=== PATIENT | male | born 1965 | race Caucasian/White ===

== ENCOUNTER 2017-12-03 09:33 | Emergency (ER) | payer OTHER ==
--- NOTE | 2017-12-03 10:12 | CR ---
Clinical history: 51-year-old male left shoulder pain and limited movement. Interpretation: Abnormal. AP and scapular Y view of the left shoulder confirm older, comminuted, mildly impacted left humeral h ead fracture. No juxta-articular rotator cuff tendon calcifications, other fracture or signs of glenohumeral disloc ation. Ipsilateral acromioclavicular joint is intact. Left lung apex clear and underlying ribs are unremarkable.
--- NOTE | 2017-12-03 12:43 | EDM.PDOC ---
Scribed by Lori Nolan 12/03/17 1243 for Fede Sheehan MD ED HPI GENERAL MEDICAL PROBLEM - General Chief Complaint: Upper Extremity Injury/Pain Stated Complaint: [id number] LEFT ARM PAIN Time Seen by Provider: 12/03/17 11:49 Source of Information: Reports: Patient, RN, RN Notes Reviewed History Limitations: Reports: No Limitations - History of Present Illness INITIAL COMMENTS - FREE TEXT/NARRATIVE: Patient presents with complaint of left shoulder and upper arm pain sustained this morning at approximately 0750 hours when he slipped and fell on the ice. Denies any other injury. Denies prior history of left upper arm or shoulder injury. Onset: Today Location: Reports: Upper Extremity, Left Quality: Reports: Ache Severity: Severe Improves with: Reports: None Worsens with: Reports: None Associated Symptoms: Reports: No Other Symptoms Left Shoulder Pain Score (Numeric/FACES): 4 - Related Data Allergies Allergy/AdvReac Type Severity Reaction Status Date / Time No Known Allergies Allergy Verified 12/03/17 09:57 Home Meds: Home Meds . [No Known Home Meds] 12/03/17 [History] Past Medical History - Past Health History Medical/Surgical History: Denies Medical/Surgical History Social & Family History - Family History Family Medical History: Noncontributory - Tobacco Use Smoking Status *Q: Current Every Day Smoker Years of Tobacco use: 27 Packs/Tins Daily: 1 - Caffeine Use Caffeine Use: Reports: Coffee, Soda - Recreational Drug Use Recreational Drug Use: No Review of Systems - Review of Systems Review Of Systems: ROS reveals no pertinent complaints other than HPI. ED EXAM, GENERAL - Physical Exam Exam: See Below Exam Limited By: No Limitations General Appearance: Alert, WD/WN Eye Exam: Bilateral Eye: Normal Inspection Ears: Normal External Exam, Normal Canal, Hearing Grossly Normal, Normal TMs Nose: Normal Inspection, Normal Mucosa, No Blood Throat/Mouth: Normal Inspection, Normal Lips, Normal Teeth, Normal Gums, Normal Oropharynx, Normal Voice, No Airway Compromise Head: Atraumatic, Normocephalic Neck: Normal Inspection, Supple, Non-Tender, Full Range of Motion Respiratory/Chest: No Respiratory Distress Cardiovascular: Other (normal bilateral radial pulse. ) Peripheral Pulses: 3+: Radial (L), Radial (R) (Male) Exam: Deferred Rectal (Males) Exam: Deferred Extremities: Normal Capillary Refill, Arm Pain (left shoulder, no visible swelling, bruising or deformity. Skin is intact.), Other (Right upper extremitiy and bilateral lower extremities normal to exam) Neurological: Alert, Oriented, CN II-XII Intact, Normal Cognition, Normal Gait, Normal Reflexes, No Motor/Sensory Deficits Psychiatric: Normal Affect, Normal Mood Skin Exam: Warm, Dry, Intact, Normal Color, No Rash Course - Vital Signs Last Recorded V/S: Last Vital Signs Temp 37.2 C 12/03/17 09:53 Pulse 94 12/03/17 09:53 Resp 14 12/03/17 09:53 BP 150/90 H 12/03/17 09:53 Pulse Ox 99 12/03/17 09:53 - Orders/Labs/Meds Orders: Active Orders 24 hr Category Date Time Status DME for Discharge [COMM] Routine Oth 12/03/17 12:01 Ordered - Radiology Interpretation Free Text/Narrative:: X-ray left shoulder: Nondisplaced impaction fracture of left proximal humerus. See rad report. Departure - Departure Time of Disposition: 12:37 Disposition: Home, Self-Care 01 Condition: Good Clinical Impression: Fracture, humerus, proximal Qualifiers: Encounter type: initial encounter Fracture type: closed Fracture morphology: other fracture Fracture alignment: nondisplaced Laterality: left Qualified Code( s): S42.295A - Other nondisplaced fracture of upper end of left humerus, initial encounter for closed fracture - Discharge Information Instructions: Humerus Fracture Treated With Immobilization, [id number] Forms: ED Department Discharge Additional Instructions: RX: [place] 5mg/325mg. *DO NOT DRIVE while under the influence of this medication. Keep left arm in hanging sling. Follow up at [facility] in [place] Thursday (as scheduled with Dr. Silvio Buckley) May use over the counter Ibuprofen (Motrin/Advil) 200mg: Take 3 tablets by mouth every 6 hours as needed for pain. Take with food. - My Orders Last 24 Hours: My Active Orders 12/03/17 12:01 DME for Discharge [COMM] Routine - Assessment/Plan Last 24 Hours: My Active Orders 12/03/17 12:01 DME for Discharge [COMM] Routine I have read and agree with the documentation that has been completed regarding this visit. By signing this record, I attest that the documentation was completed in my physical presence and is an accurate record of the encounter.
== END 2017-12-03 12:50 | disposition home or self-care (01) ==
LOC: DL.ED 09:33
DX: S42.295A Other nondisplaced fracture of upper end of left humerus, initial encounter for closed fracture (principal); F17.210 Nicotine dependence, cigarettes, uncomplicated; Z91.81 History of falling; W00.0XXA Fall on same level due to ice and snow, initial encounter
CPT/HCPCS: 73030-LT; 99284